=== PATIENT | female | born 1980 | race Two or more races ===

== ENCOUNTER 2025-04-11 07:29 | Outpatient (CLI) | payer OTHER | END 2025-04-11 07:36 | disposition home or self-care (01) | LOC: SONOGRAMA 07:29 | DX: R10.0 Acute abdomen (principal) ==

== ENCOUNTER 2025-05-07 07:00 | Day surgery (SDC) | payer OTHER ==
[2025-04-30 08:01] VITALS: BP 111/77
[2025-04-30 08:40] LABS: BASO % 0.8 % (0.1-1.2); EOS # 0.04 (0.04-0.54); EOS % 1.0 % (0.7-7.0); LYMPH # 1.26 (1.18-3.74); LYMPH % 32.7 % (19.3-53.1); MEAN PLATELET VOLUME 8.50 fl (9.4-12.4); MONO # 0.36 (0.24-0.82); MONO % 9.4 % (4.7-12.5); NEUT # 2.16 (1.56-6.13); NEUT % 56.1 % (34.0-71.1); RED CELL DISTRIBUTION WIDTH 13.7 % (11.6-14.4)
[2025-04-30 08:49] LABS: URINE APPEARANCE Cloudy; URINE BILIRRUBIN Negative (NEGATIVE); URINE BLOOD Large; URINE COLOR Dark Yellow; URINE GLUCOSE Negative (NEGATIVE); URINE KETONE Trace (NEGATIVE); URINE LEUKOCYTE Negative; URINE NITRATE Negative; URINE PROTEIN Trace (NEGATIVE); URINE UROBILINOGEN 0.2 E.U./dl
[2025-04-30 09:00] LABS: URINE BACTERIA 43.1 uL (0.0-1933); URINE EPITHELIAL CELLS 23.0 uL (0.0-38.8); URINE RBC 1584.7 uL (0.0-20.8); URINE WBC 13.3 uL (0.0-23.2)
[2025-04-30 09:01] LABS: URINE CAST 0.87 uL (0.0-1.40)
[2025-04-30 09:03] LABS: INR 1.03
[2025-04-30 09:27] LABS: ALT/SGPT 18.0 U/L (12-78); AST/SGOT 14.0 U/L (15-37); BILIRUBIN TOTAL 0.25 mg/dL (0.3-1.2); BUN CREA RATIO 28.0 (7.0-25.0); CREATININE SERUM 0.47 mg/dL (0.55-1.02); GFR 142.66; GLOBULINA 3.4 G/DL (2.4-3.5); GLUCOSE FASTING 104.0 mg/dL (65-100); OSMOLALITY SERUM 287.0 MOSM/KG (275-295)
[2025-04-30 09:29] LABS: URINE MUCUS HEAVY
[~2025-05-07] VITALS: Ht 160 cm; Wt 62.1 kg
[2025-05-07] MEDS ORDERED: CEFAZOLIN SODIUM 1,000 MG VIAL ONE (07:14)
[2025-05-07] MEDS ORDERED: BUPIVACAINE HCL 30 ML VIAL IJ ONE (12:15)
[2025-05-07] MEDS ORDERED: SUGAMMADEX SODIUM 200 MG/2 ML VIAL IV ONE (12:46)
[2025-05-07] MEDS ORDERED: ONDANSETRON HCL 2 MG/ML VIAL ONE (13:48)
[2025-05-07] MEDS ORDERED: CEFAZOLIN SODIUM 1,000 MG VIAL IV SCH (14:00)
[2025-05-07 22:09] VITALS: BP 140/78; O2SAT 100
== END 2025-05-07 19:20 | disposition home or self-care (01) ==
LOC: CIR.AMB 07:00
PROVIDERS: ATTEND Specialist
DX: K80.10 Calculus of gallbladder with chronic cholecystitis without obstruction (principal)